=== PATIENT | male | born 2000 | race Caucasian/White ===

== ENCOUNTER 2024-12-29 10:10 | Emergency (ER) | payer MEDICAID ==
[~2024-12-29] VITALS: Ht 185.4 cm; Wt 65.4 kg
[2024-12-29 10:14] VITALS: BP 107/56; PULSE 60; RESP 14; TEMP 98.2; O2SAT 99
--- NOTE | 2024-12-29 10:27 | Physician Documentation ---
History of Present Illness ~ Chief Complaint: Anxiety Stated Complaint: CP ANXIETY Time Seen by MD: 10:23 HPI This normally healthy 21-year-old male presents to the ED with a complaint of anxiety attacks over the last 2-3 weeks. He states that he smokes marijuana regularly and cigarettes. States he also has had right-sided and sternal chest pain.. Day of Onset: December 29, 2024 Medication Reconciliation Allergies: Coded Allergies: No Known Allergies (Unverified , 12/29/24) Scheduled Hydroxyzine Hcl* (Atarax*), 1 TAB PO Q12H Review of Systems All Other Systems at this time: Reviewed and Negative ROS As stated above in the HPI, otherwise all systems are reviewed and negative. Physical Exam Vital Signs: Temperature: 98.2, Source: Temporal, Heart Rate: 60, Respiratory Rate: 14, BP: 107/56, Pulse Oximetry: 99, Weight: 65.400 Oxygen Flow Rate: 0 Physical Exam General: Alert, no apparent distress. Respiratory: Lungs clear, no respiratory distress. Chest: No accessory muscle use. tender To the right intercostals Cardiovascular: Regular rate and rhythm, no murmurs. Neurologic: Oriented x4. Psychiatric: Normal mood and affect. Skin: Normal color, warm and dry. No edema, no ecchymosis. Progress Results/Orders Results/Orders Orders - VICENTE HERNANDEZ BIOSTATISTICS DIRECTOR Chest,Single View (12/29/24 10:43) Completed Orders - VICENTE HERNANDEZ BIOSTATISTICS DIRECTOR Chest,Single View (12/29/24 10:43) Vital Signs 12/29/24 10:14 Temp 98.2 Pulse 60 Resp 14 B/P (MAP) 107/56 Pulse Ox 99 O2 Flow Rate 0 Medical Decision Making Findings My interpretation of the patient's chest x-ray did not see any signs of acute fracture pulmonary infiltrate or any concerning signs diagnosed patient with likely costochondritis combined with the anxiety. I advised the patient to taper his usage of marijuana and cease using nicotine Differential Dx:Considerations: Include: Alcohol abuse, Anxiety, Bipolar disorder, Conversion disorder, Depression, Encephaloathy, Homicidal, Panic disorder, Personality disorder, Schizophrenia, Substance abuse, Suicidal, Other Departure Disposition: 01 HOME / SELF CARE / HOMELESS Impression: Primary Impression: Anxiety Additional Impression: Costochondral chest pain Condition: Stable Discharge Instructions: Costochondritis, [id number], Panic Attack Referrals: NO PRIMARY CARE PROVIDER (PCP) Prescriptions Hydroxyzine Hcl* (Atarax*) 25 Mg Tablet 1 TAB PO Q12H for anxiety for 30 Days, #60 TAB Prov: VICENTE HERNANDEZ BIOSTATISTICS DIRECTOR 12/29/24 Signature Scribe Signature: irene Attestation: The note accurately reflects work and decisions made by me.Vicente Hernandez - RIA 12/29/24 18:11 VICENTE HERNANDEZ NP December 29, 2024 10:27
[2024-12-29] MEDS ORDERED: HYDR-3686 PO (10:46)
--- NOTE | 2024-12-29 12:05 | RADIOLOGY REPORT ---
CHEST RADIOGRAPH Indication: rib tenderness Technique: Single frontal view of the chest was obtained COMPARISON: None FINDINGS: Lines and Tubes: None Lungs: Clear Pleura: No effusion. No pneumothorax. Cardiomediastinal contours: Unremarkable Bones: Unremarkable IMPRESSION: 1. No acute disease.
== END 2024-12-29 11:01 | disposition home or self-care (01) ==
LOC: ER 10:11
DX: F41.9 Anxiety disorder, unspecified (principal); R07.9 Chest pain, unspecified; Z79.899 Other long term (current) drug therapy
CPT/HCPCS: 71045; 99283

== ENCOUNTER 2024-12-31 20:42 | Emergency (ER) | payer MEDICAID ==
[~2024-12-31] VITALS: Ht 185.4 cm; Wt 65.8 kg
[~2024-12-31 20:42] MED LIST: HYDR-3686 PO
[2024-12-31 21:00] VITALS: BP 119/64; PULSE 61; RESP 18; TEMP 98.7; O2SAT 98
--- NOTE | 2024-12-31 23:09 | Physician Documentation ---
History of Present Illness ~ Chief Complaint: Anxiety Stated Complaint: ANXIETY HPI 24-year-old male who presents with recurring anxiety attacks, patient reports that prior to anxiety attacks he typically feels random pains in his lower ribcage. Patient reports his pains are intermittent and does not have no palliating or provoking factors. Patient reports no fevers. Reports he is a smoker and does cough intermittently though has not been coughing more than normal. Medication Reconciliation Allergies: Coded Allergies: No Known Allergies (Unverified , 12/29/24) Scheduled Hydroxyzine Hcl* (Atarax*), 1 TAB PO Q12H Physical Exam Vital Signs: Temperature: 98.7, Source: Temporal, Heart Rate: 61, Respiratory Rate: 18, BP: 119/64, Pulse Oximetry: 98, Weight: 65.750 Oxygen Flow Rate: 0 Physical Exam VITALS: Reviewed and as above. GENERAL: Alert, nontoxic appearing, no apparent distress. HEENT: RESPIRATORY: No increased work of breathing, no respiratory distress, speaking in full clear sentences, clear lung sounds in all maharaj CHEST: Nontender to palpation CV: Regular rate and rhythm no murmur BACK: Nontender to palpate GI: Nondistended MUSCULOSKELETAL: SKIN: NEURO: PSYCH: Progress Results/Orders Results/Orders Vital Signs 12/31/24 21:00 Temp 98.7 Pulse 61 Resp 18 B/P (MAP) 119/64 Pulse Ox 98 O2 Flow Rate 0 Medical Decision Making Findings MSE performed in triage and patient returned to ED lobby by nursing staff Departure Referrals: NO PRIMARY CARE PROVIDER (PCP) SOFI LOPEZ Dec 31, 2024 23:09
== END 2025-01-01 05:57 | disposition left against medical advice (07) ==
LOC: ER 20:42
DX: F41.9 Anxiety disorder, unspecified (principal); F17.200 Nicotine dependence, unspecified, uncomplicated; Z79.899 Other long term (current) drug therapy
CPT/HCPCS: 99281